=== PATIENT | female | born 1935 | race Caucasian/White ===

== ENCOUNTER → 2024-08-04 10:11 | Outpatient (REF) | payer BC, SELFPAY | LOC: HWRAD 10:11 | PROVIDERS: ATTENDING PHYSICIAN Family Medicine | DX: Z78.0 Asymptomatic menopausal state (principal) | CPT/HCPCS: 77080 ==

== ENCOUNTER → 2024-08-07 12:59 | Outpatient (REF) | payer BC, SELFPAY | LOC: HWWDC 12:59 | PROVIDERS: ATTENDING PHYSICIAN Family Medicine | DX: Z12.31 Encounter for screening mammogram for malignant neoplasm of breast (principal) | CPT/HCPCS: 77063; 77067 ==